=== PATIENT | female | born 1940 | race Caucasian/White ===

== ENCOUNTER 2016-07-28 13:20 | Outpatient (CLI) | payer MEDICARE, OTHER | END 2016-07-28 13:21 | disposition home or self-care (01) | LOC: DI 13:20 | PROVIDERS: ATTEND Internal Medicine | DX: Z53.9 Procedure and treatment not carried out, unspecified reason (principal) ==

== ENCOUNTER 2016-08-05 13:48 | Outpatient (CLI) | payer MEDICARE, OTHER ==
--- NOTE | 2016-08-05 15:46 | Mammography Report ---
DIGITAL DIAGNOSTIC BILATERAL MAMMOGRAM: 08/05/2016 CLINICAL INDICATION: Bilateral breast pain. COMPARISON: Films from [place], [place] dated 07/23/2015, 02/05/2015, 07/31/2014, 07/19/2014 , 07/16/2013, 07/14/2012, 07/12/2011, 07/03/2010, 06/30/2009, 05/30/2008. TECHNIQUE: Bilateral CC and MLO views, bilateral true lateral views, right laterally exaggerated CC v iews. The patient described the pain in the right breast as being periincisional, and in the left ute ast as being diffuse. FINDINGS: The breasts demonstrate heterogeneously dense fibroglandular parenchyma bilaterally. Posto perative and posttreatment changes in the right breast are stable. No suspicious masses, clustered mi crocalcifications, or regions of architectural distortion are identified. IMPRESSION: BENIGN FINDINGS. RECOMMENDATION: ROUTINE ANNUAL SCREENING UNLESS OTHERWISE CLINICALLY INDICATED. BIRADS CATEGORY 2-BENIGN FINDINGS. STANDARD QUALIFYING STATEMENTS 1. This examination was reviewed with the aid of Computer-Aided Detection (CAD). 2. A negative or benign imaging report should not delay biopsy if clinically suspicious findings are present. Consider surgical consultation if warranted. More than 5% of cancers are not identified by i maging. 3. Dense breasts may obscure an underlying neoplasm. JOB #: [id number] EXT JOB #:
== END 2016-08-05 13:49 | disposition home or self-care (01) ==
LOC: DI 13:48
PROVIDERS: ATTEND Internal Medicine
DX: N64.4 Mastodynia (principal)
CPT/HCPCS: 77066

== ENCOUNTER 2017-07-15 13:25 | Outpatient (CLI) | payer MEDICARE, OTHER ==
--- NOTE | 2017-07-21 14:27 | Mammography Report ---
Procedure Date: 07/15/2017 Accession Number: [id number] / [id number] Procedure: LOUIE - Screening Mammo Dig Bilat CPT Code: FULL RESULT: EXAM: Screening Mammo Dig Bilat DATE: 07/15/2017 2:00 PM CLINICAL HISTORY: 77-year-old with personal history of right breast cancer status post lumpectomy and chemoradiation TECHNIQUE: Bilateral CC and MLO views were obtained. COMPARISON: 08/05/2016, 07/23/2015, 02/05/2015, 07/31/2014, 07/19/2014, 07/16/2013, 07/18/2012, 07/12/2011, 07/03/2010, 06/30/2009 FINDINGS: The breasts demonstrate heterogeneously dense fibroglandular parenchyma bilaterally. Postoperative and posttreatment changes are stable. Positioning is limited by the patient's general condition. No suspicious masses, clustered microcalcifications, or regions of architectural distortion are identified. IMPRESSION: Benign findings RECOMMENDATION: Routine annual screening unless otherwise clinically indicated. BIRADS CATEGORY 2: Benign findings STANDARD QUALIFYING STATEMENTS: 1. This examination was reviewed with the aid of Computer-Aided Detection (CAD). 2. A negative or benign imaging report should not delay biopsy if clinically suspicious findings are present. Consider surgical consultation if warrented. More than 5% of cancers are not identified by imaging. 3. Dense breasts may obscure an underlying neoplasm.
== END 2017-07-15 13:26 | disposition home or self-care (01) ==
LOC: DI 13:25
PROVIDERS: ATTEND Internal Medicine
DX: Z12.31 Encounter for screening mammogram for malignant neoplasm of breast (principal); Z85.3 Personal history of malignant neoplasm of breast
CPT/HCPCS: 77067

== ENCOUNTER 2018-04-10 22:49 | Outpatient (CLI) | payer MEDICARE, OTHER ==
--- NOTE | 2018-04-11 01:19 | Ultrasound Report ---
Reason: EDEMA Procedure Date: 04/10/2018 Accession Number: [id number] / [id number] Procedure: US - Duplex Ext Veins Right CPT Code: FULL RESULT: EXAM: RIGHT LOWER EXTREMITY VENOUS ULTRASOUND EXAM DATE: 04/10/2018 11:20 PM. CLINICAL HISTORY: EDEMA. COMPARISON: None. TECHNIQUE: Real-time sonographic vascular imaging was performed by the health care law specialist through the lower extremity utilizing both color-flow and Doppler spectral analysis. Multiple retail customer service representative static images were saved for review. FINDINGS: Common Femoral Vein (CFV): Normal. CFV-GSV Junction: Normal. Profunda Femoral Vein (PFV): Normal. Femoral Vein (FV) Prox: Normal. Femoral Vein (FV) Mid: Normal. Femoral Vein (FV) Dist: Normal. Popliteal Vein: Normal. Posterior Tibial Veins: Normal. Peroneal Veins: Normal. Contralateral Side CFV: Normal. Other: None. IMPRESSION: No evidence for deep venous thrombosis. RADIA
== END 2018-04-10 22:50 | disposition home or self-care (01) ==
LOC: DI 22:49
PROVIDERS: ATTEND Internal Medicine
DX: R60.0 Localized edema (principal)

== ENCOUNTER 2018-04-19 10:10 | Outpatient (CLI) | payer MEDICARE, OTHER ==
--- NOTE | 2018-04-19 22:02 | MRI Report ---
Reason: SPOKE WITH PT, HE HAS A BAD COUGH AND WOULD LIKE T Procedure Date: 04/19/2018 Accession Number: [id number] / [id number] Procedure: MRI - Lumbar Spine W/O CPT Code: FULL RESULT: EXAM: MRI LUMBAR SPINE WITHOUT CONTRAST. EXAM DATE: 04/19/2018 11:45 AM. CLINICAL HISTORY: Low back pain. COMPARISON: None. TECHNIQUE: Multiplanar, multisequence T1-weighted and fluid-sensitive sequences of the lumbar spine from T12 to S1 without contrast. Other: None. FINDINGS: Spinal Canal: The conus terminates at L1-L2. The conus medullaris and cauda equina are unremarkable. Alignment: Mild levoconvex scoliosis of the upper lumbar spine. Grade 1 retrolisthesis at L4-L5 by approximately 4 mm and grade 1 retrolisthesis at L1-L2 by approximately 3 mm. Bone Marrow: Five bjg-dwa-nsdfwog lumbar vertebral bodies are assumed. There are Schmorl's nodes at the T11, T12, L5, S1 superior endplates and at the L4, L3, L1 inferior endplates. No acute fracture or bone lesions. Disk Levels/Facets: L5-S1: Moderate to severe left-sided and moderate right-sided disk space narrowing. Small disk bulge. Moderate to severe facet arthropathy. Mild canal and foraminal stenoses. L4-L5: Degenerative endplate changes. Moderate to severe disk space narrowing. Small disk bulge/osteophyte complex. Mild to moderate facet arthropathy. Mild to moderate canal stenosis. Mild to moderate foraminal stenoses. L3-L4: Small right foraminal disk protrusion. Moderate right facet arthropathy. Mild to moderate right foraminal stenosis. L2-L3: Small disk bulge. Mild facet arthropathy. Minimal canal and foraminal narrowing. L1-L2: Small disk bulge. Mild canal and mild to moderate left and mild right foraminal stenoses. T12-L1: Mild to moderate disk space narrowing. Small disk bulge. Minimal canal narrowing. No foraminal stenoses. Musculature: No edema. Other: Bilateral renal cysts are present. IMPRESSION: 1. Multilevel degenerative disk changes, ligamentum flavum thickening, and facet arthropathy. 2. Mild levoconvex scoliosis of the upper lumbar spine. 3. Grade 1 retrolisthesis at L4-L5 and L1-L2. 4. Small disk bulge/osteophyte complex at L4-L5. Mild to moderate canal and foraminal stenoses. 5. Small right foraminal disk protrusion at L3-L4. Mild to moderate right foraminal stenosis. 6. Small disk bulge at L1-L2. Mild canal stenosis. Mild to moderate left and mild right foraminal stenoses. Comment: The following findings are so common in adults without low back pain that while we report their presence, they must be interpreted with caution and in the context of the clinical situation. (Reference Allenk et al, Spine 2001) Prevalence of findings in patients without low back pain: Disk degeneration (any evidence): 92% Disk desiccation/T2 signal loss: 83% Disk height loss: 56% Disk bulge: 64% Disk protrusion: 32% Annular tear/high intensity zone: 38% RADIA
== END 2018-04-19 10:11 | disposition home or self-care (01) ==
LOC: DI 10:10
PROVIDERS: ATTEND Internal Medicine
DX: M51.36 Other intervertebral disc degeneration, lumbar region (principal); M48.061 Spinal stenosis, lumbar region without neurogenic claudication; M51.26 Other intervertebral disc displacement, lumbar region; M47.9 Spondylosis, unspecified; M43.16 Spondylolisthesis, lumbar region; M51.37 Other intervertebral disc degeneration, lumbosacral region; M48.07 Spinal stenosis, lumbosacral region
CPT/HCPCS: 72148

== ENCOUNTER 2018-04-29 12:28 | Emergency (ER) | payer MEDICARE, OTHER ==
[2018-04-29 12:39] VITALS: BP 143/80
[2018-04-29] MEDS ORDERED: predniSONE 20 MG TABLET PO STA (13:04)
[2018-04-29] MEDS ORDERED: HYDROcod/ACETAM 5/325 MG TABLET PO STA (13:04)
--- NOTE | 2018-04-29 13:06 | ED Physician Documentation ---
PD HPI BACK PAIN - Stated complaint Stated Complaint: UNABLE TO WALK - Chief complaint Chief Complaint: Back Pain - Additional information Additional information: 78-year-old female with a history of ongoing back pain which radiates into her right leg presents the emergency department for pain control. The patient's symptoms have been ongoing since March, the patient reports ongoing leg pain. No significant change. The patient is just tired of the pain. The patient had an MRI on April 2018 which showed no evidence of epidural abscess or cauda equina. The patient is scheduled to see pain management for injections coming this May per her account. The patient denies fever, saddle anesthesia, motor weakness that is new, sensory changes, urinary retention, overflow incontinence, hematuria, flank pain, IV drug use, fevers or being on dialysis. Today no attempts at symptom management. No other associated symptoms Review of Systems Constitutional: denies: Fever Eyes: denies: Discharge Nose: denies: Rhinorrhea / runny nose Throat: denies: Sore throat Cardiac: denies: Chest pain / pressure Respiratory: denies: Dyspnea GI: denies: Abdominal Pain Musculoskeletal: reports: Back pain Neurologic: denies: Focal weakness, Difficulty speaking PD PAST MEDICAL HISTORY - Past Medical History Past Medical History: Yes Psych: Bipolar disorder Other Past Medical History: Breast Ca - Past Surgical History Past Surgical History: No - Present Medications Home Medications: Ambulatory Orders Medication Instructions Recorded Confirmed Hydrocodone/Acetaminophen [[place] 1 each PO Q6HR PRN #14 tablet 04/29/18 5-325 Tablet] [place] [place] [facility] [Lithobid] 600 mg PO QD 04/29/18 04/29/18 predniSONE [Prednisone] 40 mg PO DAILY #10 tablet 04/29/18 - Allergies Allergies/Adverse Reactions: Allergies Allergy/AdvReac Type Severity Reaction Status Date / Time chocolate flavor Allergy Hives Verified 04/29/18 12:39 Penicillins Allergy Anaphylaxis Verified 04/29/18 12:39 Sulfa (Sulfonamide Allergy Anaphylaxis Verified 04/29/18 12:39 Antibiotics) - Social History Does the pt smoke?: No Smoking Status: Never smoker Does the pt drink ETOH?: No Does the pt have substance abuse?: No - Immunizations Immunizations are current?: Yes PD ED PE NORMAL - General General: Alert and oriented X 3, No acute distress - HEENT HEENT: Atraumatic, PERRL, EOMI, Ears normal - Back Back: Other (The patient has tenderness in the paraspinal muscles of the right lumbar region. 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 The patient has normal sensation light touch. The patient has 2/4 patellar reflex bilaterally. The patient has normal dorsalis pedis pulses. The patient can ambulate) Results - Vitals Vitals: Vital Signs - 24 hr 04/29/18 12:35 Temperature 36.8 C Heart Rate 90 Respiratory 16 Rate Blood Pressure 143/80 H O2 Saturation 99 Oxygen O2 Source Room air PD MEDICAL DECISION MAKING - ED course ED course: The patient had a recent MRI, the patient has no significant change in her symptoms and has no clinical findings to suggest cauda equina or epidural abscess and repeat an MRI does not seem warranted at this time. The patient scheduled for further management for pain as an outpatient. In the interim The patient will be given a prescription for pain control. I recommended follow-up with primary care for recheck this week. The patient will return to the emergency department for any worsening or any concerns. Departure - Departure Disposition: 01 Home, Self Care Clinical Impression: Lumbar pain Condition: Good Instructions: ED Sciatica Follow-Up: Sinai Sampson MD [Primary Care Provider] - Within 1 week Prescriptions: Hydrocodone/Acetaminophen [[place] 5-325 Tablet] 1 each PO Q6HR PRN #14 tablet PRN Reason: Pain predniSONE [Prednisone] 40 mg PO DAILY #10 tablet Comments: Please return to the emergency department for worsening symptoms or any concerns
== END 2018-04-29 13:21 | disposition home or self-care (01) ==
LOC: ED 12:28
DX: M54.5 Low back pain (principal)
CPT/HCPCS: 99283; A9270; J7512

== ENCOUNTER 2018-05-01 12:21 | Outpatient (CLI) | payer MEDICARE, OTHER ==
--- NOTE | 2018-05-01 16:10 | XRAY Report ---
Reason: SEVERE R LEG PAIN Procedure Date: 05/01/2018 Accession Number: [id number] / [id number] Procedure: XR - Hip w/Pelvis 2-3V RT CPT Code: FULL RESULT: EXAM: RIGHT HIP RADIOGRAPHY EXAM DATE: 05/01/2018 01:45 PM. CLINICAL HISTORY: SEVERE R LEG PAIN. COMPARISON: LUMBAR SPINE W/O 04/19/2018 11:00 AM. TECHNIQUE: 1 view pelvis. 2 views right hip. FINDINGS: Bones: The bones are osteopenic. No acute fracture or dislocation visualized. Degenerative disk disease at L4-L5. Joints: Mild narrowing of the hip joint spaces bilaterally. Otherwise unremarkable. Soft Tissues: Multiple phleboliths in the pelvis. IMPRESSION: Osteopenia. No acute fracture or dislocation visualized. RADIA
--- NOTE | 2018-05-01 16:15 | XRAY Report ---
Reason: severe right leg pain Procedure Date: 05/01/2018 Accession Number: [id number] / [id number] Procedure: XR - Femur 2V RT CPT Code: FULL RESULT: EXAM: RIGHT FEMUR RADIOGRAPHY EXAM DATE: 05/01/2018 01:45 PM. CLINICAL HISTORY: Severe right leg pain. COMPARISON: None available. TECHNIQUE: AP and lateral views. FINDINGS: Bones: The bones are osteopenic. No acute fracture or dislocation visualized. Joints: Mild narrowing of the right hip joint space. Near complete loss of the joint space at the medial compartment of the right knee. Soft Tissues: Calcified plaque in the femoral arteries. IMPRESSION: Osteopenia. No acute fracture or dislocation visualized. RADIA
== END 2018-05-01 12:22 | disposition home or self-care (01) ==
LOC: DI 12:21
PROVIDERS: ATTEND Internal Medicine
DX: M85.89 Other specified disorders of bone density and structure, multiple sites (principal)

== ENCOUNTER 2018-07-27 09:55 | Outpatient (CLI) | payer MEDICARE, OTHER ==
--- NOTE | 2018-07-28 10:39 | DEXA Report ---
Reason: ASYMPTOMATIC MENOPAUSAL STATE Procedure Date: 07/27/2018 Accession Number: [id number] / [id number] Procedure: DEX - Dexa Spine and/or Hip CPT Code: FULL RESULT: EXAM: Dexa Spine and/or Hip DATE: 07/27/2018 11:06 AM CLINICAL HISTORY: ASYMPTOMATIC MENOPAUSAL STATE TECHNIQUE: Dual energy x-ray absorptiometry (DXA) was performed on a [employer] Liaison System. Regions measured are the AP Spine, femoral neck, and if needed forearm. COMPARISON: None. In accordance with the International Society for Clinical Densitometry (ISCD) guidelines, data from previous exams may be reanalyzed using current recommendations and techniques. This is done to allow a more accurate basis for comparison with the current study. FINDINGS: The data for the lumbar spine is as follows: BMD (g/cm/cm) T-SCORE Z-SCORE REGION L1 1.089 -0.3 1.4 L2 1.245 0.4 2.1 L3 1.091 -0.9 0.8 L4 1.207 0.1 1.8 TOTAL 1.161 -0.2 1.6 NOTE: All evaluable vertebrae are used for classification The data for the hip is as follows: BMD (g/cm/cm) T-SCORE Z-SCORE REGION Neck 0.785 -1.8 0.2 TOTAL 0.789 -1.7 0.1 NOTE: The femoral neck or total proximal femur, whichever is lowest, is used for classification. IMPRESSION: THE WHO CLASSIFICATION BASED ON THE INTERNATIONAL REFERENCE STANDARD IS OSTEOPENIA. THE FRACTURE RISK IS INCREASED. RECOMMENDATION: Patients with diagnosis of osteoporosis or osteopenia should have regular bone mineral density assessment. For those eligible for Medicare, routine testing is allowed once every 2 years. Testing frequency can be increased for patients who have rapidly progressing disease or for those who are receiving medical therapy to restore bone mass. COMMENT: World Health Organization (WHO) definitions for osteoporosis and osteopenia: NORMAL BMD: T-score at -1.0 or higher, fracture risk is low OSTEOPENIA BMD: T-score between -1.0 and -2.5, fracture risk is increased. OSTEOPOROSIS BMD: T-score at -2.5 or lower, fracture risk is high. National Osteoporosis Foundation recommends: 1. Obtain adequate dietary calcium (at least 1200 mg per day) and vitamin D (400-800 international units per day). 2. Participate, as appropriate, in regular weightbearing and muscle-strengthening exercise. 3. Avoid tobacco use and reduce alcohol and caffeine intake. 4. For more detailed information see the website at www.NOF.org.
== END 2018-07-27 09:56 | disposition home or self-care (01) ==
LOC: DI 09:55
PROVIDERS: ATTEND Internal Medicine
DX: M85.89 Other specified disorders of bone density and structure, multiple sites (principal); Z78.0 Asymptomatic menopausal state
CPT/HCPCS: 77080

== ENCOUNTER 2019-04-13 08:19 | Outpatient (CLI) | payer MEDICARE, OTHER ==
[2019-04-13 09:05] LABS: BASOPHILS # (AUTO) 0.1 10^3/uL (0.0-0.1); BASOPHILS % (AUTO) 0.9 %; EOSINOPHILS # (AUTO) 0.2 10^3/uL (0.0-0.7); EOSINOPHILS % (AUTO) 3.4 %; HGB - HEMOGLOBIN 14.7 g/dL (12.0-16.0); LYMPHOCYTES # (AUTO) 1.3 10^3/uL (1.5-3.5); LYMPHOCYTES % (AUTO) 22.1 %; MEAN CORPUSCULAR HEMOGLOBIN 31.4 pg (27.0-31.0); MEAN CORPUSCULAR HGB CONC 32.7 g/dL (32.0-36.0); MEAN CORPUSCULAR VOLUME 95.9 fL (81.0-99.0); MEAN PLATELET VOLUME 10.5 fL (7.9-10.8); MONOCYTES # (AUTO) 0.4 10^3/uL (0.0-1.0); MONOCYTES % (AUTO) 7.8 %; NEUTROPHILS # (AUTO) 3.7 10^3/uL (1.5-6.6); NEUTROPHILS % (AUTO) 65.4 %; PLT - PLATELET COUNT 220 10^3/uL (130-450); RED BLOOD COUNT 4.68 10^6/uL (4.20-5.40); RED CELL DISTRIBUTION WIDTH 12.6 % (12.0-15.0); WHITE BLOOD COUNT 5.7 x10^3/uL (4.8-10.8)
[2019-04-13 09:19] LABS: LITHIUM 0.59 mmol/L
[2019-04-13 09:23] LABS: ALBUMIN 4.3 g/dL (3.2-5.5); ALBUMIN/GLOBULIN RATIO 1.6 (1.0-2.2); ALKALINE PHOSPHATASE 67 IU/L (42-121); ALT ALANINE AMINOTRANSFERASE 20 IU/L (10-60); AST ASPARTATE AMINOTRANSFERASE 23 IU/L (10-42); BILIRUBIN,TOTAL 1.5 mg/dL (0.2-1.0); BUN - BLOOD UREA NITROGEN 24 mg/dL (6-20); CALCIUM 9.7 mg/dL (8.5-10.3); CARBON DIOXIDE - CO2 27 mmol/L (21-32); CHLORIDE 107 mmol/L (101-111); CHOLESTEROL 226 mg/dL; CREATININE 0.7 mg/dL (0.4-1.0); GFR - MDRD 81 (>89); GLUCOSE 90 mg/dL (70-100); HDL CHOLESTEROL 76 mg/dL; LDL CHOLESTEROL,CALCULATED 134 mg/dL; LDL/HDL RATIO 1.8 (<4.4); SODIUM 141 mmol/L (135-145); VLDL CHOLESTEROL 16 mg/dL
[2019-04-13 09:34] LABS: THYROID STIMULATING HORMONE 1.58 uIU/mL (0.34-5.60)
== END 2019-04-13 08:20 | disposition home or self-care (01) ==
LOC: LAB 08:19
PROVIDERS: ATTEND Internal Medicine
DX: E83.52 Hypercalcemia (principal); R42 Dizziness and giddiness; Z13.6 Encounter for screening for cardiovascular disorders; Z79.899 Other long term (current) drug therapy; E78.5 Hyperlipidemia, unspecified; C50.919 Malignant neoplasm of unspecified site of unspecified female breast; F31.9 Bipolar disorder, unspecified; R20.0 Anesthesia of skin
CPT/HCPCS: 36415; 80053; 80061; 80178; 82306; 82607; 83721; 83970; 84443; 85025

== ENCOUNTER 2019-05-17 16:43 | Outpatient (CLI) | payer MEDICARE, OTHER ==
--- NOTE | 2019-05-17 19:30 | MRI Report ---
Reason: HEAD INJURY, DIZZINESS AND GIDDINESS Procedure Date: 05/17/2019 Accession Number: [id number] / [id number] Procedure: MRI - Brain W/O CPT Code: Final Report FULL RESULT: EXAM: MRI BRAIN WITHOUT CONTRAST EXAM DATE: 05/17/2019 05:40 PM. CLINICAL HISTORY: 79-year-old with history of fall and had a stroke 2 weeks ago presenting with persistent dizziness, headache, and giddiness since head trauma. Evaluate for intracranial pathology. COMPARISON: None. TECHNIQUE: Multiplanar, multisequence T1-weighted and fluid-sensitive MR sequences of the brain were performed. Sequences optimized for routine evaluation. Other: None. IV Contrast: None. FINDINGS: Brain Volume: Normal for age. Parenchyma/Dura: No acute parenchymal hemorrhage, mass, or midline shift. There is T2/FLAIR signal hyperintensity seen involving the medial dorsal midbrain extending into the tegmental plate, periaqueductal bennett matter, and bilateral superior cerebellar pedicles. There is associated DWI signal hyperintensity with no ADC signal hypointensity suggesting T2 shine-through. No evidence of hemorrhagic transformation. There are additional mild to moderate bilateral areas of T2/FLAIR signal hyperintensity seen. There are old cortical lacunar infarcts seen involving the right and left cerebellum. There are no areas of restricted diffusion seen to suggest acute infarct. There are no abnormal areas of parenchymal hemosiderin deposition seen. Ventricles/Cisterns: No hydrocephalus. No abnormal extra-axial fluid collection or hemorrhage. Orbits: Changes of bilateral lens replacement. Sella Turcica: The pituitary gland, cavernous sinuses, suprasellar cistern and optic chiasm are unremarkable. IAC: Symmetric and unremarkable. Vasculature: Normal signal flow void is seen in the major arterial structures at the skull base. Sinuses: Minimal paranasal sinus mucosal thickening. Mastoid air cells and middle ear cavities appear clear. Bones: No focal pathologic appearing marrow signal changes. Other: None. IMPRESSION: 1. No acute infarct or acute intracranial hemorrhage seen. 2. There is abnormal white matter abnormality seen involving the dorsal medial midbrain extending inferiorly to involve the tegmental plate, periaquaductal bennett matter and bilateral superior cerebellar peduncles. Finding is nonspecific and potential etiologies include Wernicke's encephalopathy, Behcet's disease, atypical Patito disease, sequela of prior infectious/inflammatory process, or sequela of prior toxic/metabolic process. Correlation with laboratory values would be of use. Postcontrast MR brain is recommended for further evaluation. 3. Additional mild to moderate white matter changes seen that are nonspecific but may represent sequela of chronic small vessel ischemic disease. RADIA The call report notification system was initiated by Dr. Jose G Young at 07:28 PM on 05/17/2019. The above call report findings were discussed with Sinai Sampson by Dr. Jose G Young at 07:38 PM on 05/17/2019.
== END 2019-05-17 16:44 | disposition home or self-care (01) ==
LOC: DI 16:43
PROVIDERS: ATTEND Internal Medicine
DX: S09.90XA Unspecified injury of head, initial encounter (principal)
CPT/HCPCS: 70551

== ENCOUNTER 2019-05-23 12:41 | Outpatient (CLI) | payer MEDICARE, OTHER ==
[2019-05-23] MEDS ORDERED: GADOBUTROL 15 MMOL/15 ML VIAL ONE (13:09)
[2019-05-23] MEDS ORDERED: GADOBUTROL 7.5 MMOL/7.5 ML VIAL ONE (13:11)
[2019-05-23] MEDS ORDERED: GADOBUTROL 7.5 MMOL/7.5 ML VIAL IVP ONE (13:24)
--- NOTE | 2019-05-24 05:25 | MRI Report ---
Reason: VERTIGO, ABNORMAL MRI Procedure Date: 05/23/2019 Accession Number: [id number] / [id number] Procedure: MRI - Brain W/Contrast CPT Code: Final Report FULL RESULT: EXAM: MRI BRAIN WITH CONTRAST. EXAM DATE: 05/23/2019 01:41 PM. CLINICAL HISTORY: Vertigo, abnormal MRI. COMPARISON: BRAIN W/O 05/17/2019 5:01 PM. TECHNIQUE: Sagittal, axial, and coronal postcontrast T1-weighted MR sequences of the brain were performed. Sequences optimized for Limited postcontrast evaluation. Other: None. IV Contrast: 6 mL Gadavist. FINDINGS: Brain Volume: Age-related volume loss is present. Parenchyma: No abnormal parenchymal enhancement is seen. In particular, no abnormal enhancement is seen in FLAIR bright signal abnormality seen within the dorsal midbrain and superior cerebellar peduncles. Patchy periventricular T1 hypointense signal is seen, corresponding to T2/FLAIR hyperintensity noted on prior noncontrast brain MRI. No abnormal extra-axial enhancement is seen. Ventricles/Cisterns: No hydrocephalus. No abnormal extra-axial fluid collection or hemorrhage. No abnormal enhancement. Orbits: Unremarkable on postcontrast imaging. No abnormal enhancement. Bilateral lens removal is noted. Sella Turcica: No abnormal enhancement. IAC: No abnormal enhancement. Vasculature: Normal enhancement of arterial structures at the skull base is appreciated. Normal enhancement of dural sinuses is seen. Small arachnoid granulations are noted in the transverse sinuses bilaterally. Sinuses: No abnormal enhancement of paranasal sinuses. Bones: No focal pathologic appearing marrow signal changes. Other: None. IMPRESSION: 1. Negative postcontrast MRI of the brain. No abnormal parenchymal or extra-axial enhancement is identified. RADIA
== END 2019-05-23 12:42 | disposition home or self-care (01) ==
LOC: DI 12:41
PROVIDERS: ATTEND Internal Medicine
DX: R42 Dizziness and giddiness (principal)
CPT/HCPCS: 70552; A9585

== ENCOUNTER 2020-06-25 07:56 | Outpatient (CLI) | payer MEDICARE, OTHER ==
--- NOTE | 2020-06-26 13:41 | Mammography Report ---
BILATERAL DIGITAL SCREENING MAMMOGRAM 3D/2D: 06/25/2020 CLINICAL: Routine screening. Personal history of right breast cancer. Routine screening. Comparison is made to exams dated: 07/23/2015 mammogram, 02/05/2015 mammogram, 07/31/2014 mammogram, mammogram - [facility], 07/15/2017 mammogram, and 08/05/2016 charity mogram - [facility]. The tissue of both breasts is heterogeneously dense. This may lower the sensitivity of mammography. There are benign post operative findings in the right breast. No significant masses, calcifications, or other findings are seen in either breast. There has been no significant interval change. IMPRESSION: BENIGN There is no mammographic evidence of malignancy. A 1 year screening mammogram is recommended. This exam was interpreted at Station ID: [id number]. NOTE: For mammograms, a report in lay terms will be sent to the patient. Approximately 15% of breast malignancies will not be visualized mammographically. In the management of a palpable breast mass, a negative mammogram must not discourage biopsy of a clinically suspicious lesion. Electronically Signed By: Suresh Phillips M.D. [facility]:06/25/2020 15:16:22 ACR BI-RADS Category 2: Benign Finding(s) 3342F PARENCHYMAL PATTERN: (D) - The breast(s) demonstrate(s) heterogeneously dense fibroglandular lazaro cottrell. BI-RADS CATEGORY: (2) - 2 RECOMMENDATION: (ANNUAL) - Recommend routine annual screening mammography. [id number] 1 year screening LATERALITY: (B)
== END 2020-06-25 07:57 | disposition home or self-care (01) ==
LOC: DI 07:56
PROVIDERS: ATTEND Internal Medicine
DX: Z12.31 Encounter for screening mammogram for malignant neoplasm of breast (principal); Z85.3 Personal history of malignant neoplasm of breast

== ENCOUNTER 2021-08-15 09:25 | Outpatient (CLI) | payer MEDICARE, OTHER ==
[2021-08-15 10:10] LABS: BASOPHILS # (AUTO) 0.1 10^3/uL (0.0-0.1); BASOPHILS % (AUTO) 1.1 %; EOSINOPHILS # (AUTO) 0.1 10^3/uL (0.0-0.7); EOSINOPHILS % (AUTO) 2.3 %; HCT - HEMATOCRIT 43.2 % (37.0-47.0); LYMPHOCYTES # (AUTO) 1.4 10^3/uL (1.5-3.5); LYMPHOCYTES % (AUTO) 25.8 %; MEAN CORPUSCULAR HEMOGLOBIN 30.7 pg (27.0-31.0); MEAN CORPUSCULAR HGB CONC 32.4 g/dL (32.0-36.0); MEAN CORPUSCULAR VOLUME 94.7 fL (81.0-99.0); MEAN PLATELET VOLUME 10.2 fL (7.9-10.8); MONOCYTES # (AUTO) 0.4 10^3/uL (0.0-1.0); MONOCYTES % (AUTO) 8.1 %; NEUTROPHILS # (AUTO) 3.3 10^3/uL (1.5-6.6); NEUTROPHILS % (AUTO) 62.5 %; PLT - PLATELET COUNT 222 10^3/uL (130-450); RED BLOOD COUNT 4.56 10^6/uL (4.20-5.40); WHITE BLOOD COUNT 5.3 x10^3/uL (4.8-10.8)
[2021-08-15 10:21] LABS: ALBUMIN 4.2 g/dL (3.2-5.5); ALBUMIN/GLOBULIN RATIO 1.4 (1.0-2.2); ALKALINE PHOSPHATASE 66 IU/L (42-121); ALT ALANINE AMINOTRANSFERASE 20 IU/L (10-60); AST ASPARTATE AMINOTRANSFERASE 23 IU/L (10-42); BILIRUBIN,TOTAL 1.5 mg/dL (0.2-1.0); BUN - BLOOD UREA NITROGEN 25 mg/dL (6-20); CARBON DIOXIDE - CO2 27 mmol/L (21-32); CHLORIDE 105 mmol/L (101-111); CHOL/HDL RATIO 2.9 (<4.4); CHOLESTEROL 221 mg/dL; CREATININE 0.8 mg/dL (0.4-1.0); GFR - MDRD 69 (>89); GLUCOSE 95 mg/dL (70-100); HDL CHOLESTEROL 76 mg/dL; LDL CHOLESTEROL,CALCULATED 128 mg/dL; LDL/HDL RATIO 1.7 (<4.4); POTASSIUM 4.3 mmol/L (3.5-5.0); SODIUM 141 mmol/L (135-145); TOTAL PROTEIN 7.2 g/dL (6.7-8.2); TRIGLYCERIDES 83 mg/dL; VLDL CHOLESTEROL 17 mg/dL
[2021-08-15 10:32] LABS: THYROID STIMULATING HORMONE 1.75 uIU/mL (0.34-5.60)
[2021-08-15 10:42] LABS: BILIRUBIN,URINE NEGATIVE (NEGATIVE); GLUCOSE, URINE (UA) NEGATIVE (NEGATIVE); KETONES,URINE (UA) NEGATIVE (NEGATIVE); LEUKOCYTE ESTERASE, URINE NEGATIVE (NEGATIVE); NITRITE,URINE NEGATIVE (NEGATIVE); OCCULT BLOOD,URINE NEGATIVE (NEGATIVE); PH,URINE 6.5 PH (5.0-7.5); PROTEIN,URINE NEGATIVE (NEGATIVE); UROBILINOGEN,URINE 0.2 (NORMAL) E.U./dL (NORMAL)
[2021-08-15 10:44] LABS: CLARITY,URINE CLEAR (CLEAR)
[2021-08-15 10:55] LABS: LITHIUM 0.62 mmol/L
== END 2021-08-15 09:26 | disposition home or self-care (01) ==
LOC: LAB 09:25
PROVIDERS: ATTEND Internal Medicine
DX: R35.0 Frequency of micturition (principal); Z79.899 Other long term (current) drug therapy; R32 Unspecified urinary incontinence; R41.3 Other amnesia; R53.83 Other fatigue; M65.30 Trigger finger, unspecified finger; R25.1 Tremor, unspecified; E83.52 Hypercalcemia; L57.0 Actinic keratosis; E78.5 Hyperlipidemia, unspecified
CPT/HCPCS: 36415; 80053; 80061; 80178; 81001; 81003; 82607; 83721; 84443; 85025; 87086